=== PATIENT | male | born 1985 | race Hispanic/Latino ===

== ENCOUNTER 2021-03-17 12:31 | Emergency (ER) | payer SELFPAY ==
[~2021-03-17] VITALS: Ht 182.9 cm; Wt 99.8 kg
[2021-03-17] MEDS ORDERED: DEXAMETHASONE SOD PHOS 10 MG/1 ML VIAL IM ONE (13:00)
[2021-03-17] MEDS ORDERED: PREDNISONE10 MG PO (13:09)
[2021-03-17] MEDS ORDERED: DEXAMETHASONE SOD PHOS 10 MG/1 ML VIAL ONE (13:09)
== END 2021-03-17 16:13 | disposition home or self-care (01) ==
LOC: ER 12:37
DX: L23.7 Allergic contact dermatitis due to plants, except food (principal)
CPT/HCPCS: 99283; J1100